=== PATIENT | male | born 1980 | race African-American/Black ===

== ENCOUNTER 2022-02-05 14:45 | Emergency (ER) | payer OTHER | END 2022-02-05 16:35 | disposition home or self-care (01) | LOC: CSHERS 14:45 | DX: R09.81 Nasal congestion (principal); R05.9 Cough, unspecified; Z20.822 Contact with and (suspected) exposure to COVID-19 | CPT/HCPCS: 99283; U0003; U0005 ==

== ENCOUNTER 2022-05-21 02:52 | Emergency (ER) | payer OTHER ==
[2022-05-21 03:32] LABS: #Basophils 0.1 10x3/uL (0.0-0.2); #Eosinphils 0.1 10x3/uL (0.0-0.5); #Monocytes 0.5 10x3/uL (0.0-1.1); #Neutrophils 3.6 10x3/uL (1.5-8.4); %Basophils 0.9 % (0.0-2.0); %Eosinophils 2.5 % (0.0-6.0); %Lymphocytes 23.2 % (18.0-47.0); %Monocytes 8.3 % (0.0-10.0); %Neutrophils 64.9 % (40.0-75.0); Hemoglobin 12.9 g/dL (13.5-17.5); Mean Corpuscular Hemoglobin 27.1 pg (27.0-33.0); Mean Corpuscular Volume 82.1 fl (81.2-95.1); Mean Platelet Volume 9.9 fl (7.4-10.4); Platelet Count 259 10x3/uL (150-450); RBC Distribution Width 13.2 % (11.5-14.5); Red Blood Cell (RBC) Count 4.76 10x6/uL (4.32-5.72); White Blood Cell (WBC) Count 5.5 10x3/uL (3.5-10.5)
[2022-05-21 04:06] LABS: ALT (SGPT) 12 U/L (8-55); AST (SGOT) 17 U/L (5-34); Albumin 3.7 g/dL (3.5-5.0); Alkaline Phosphatase 84 U/L (40-110); Anion Gap 12 mmol/L (10-20); BUN (Urea Nitrogen) 14 mg/dL (8.9-20.6); Bilirubin, Total 0.6 mg/dL (0.2-1.2); CK (CPK) 184 U/L (30-200); Calc. Creatinine Clearance 0 mL/min (70-130); Calcium 8.9 mg/dL (7.8-10.44); Carbon Dioxide 25 mmol/L (22-29); Chloride 106 mmol/L (98-107); Estimated GFR 74; Glucose 103 mg/dL (70-105); Lipase 22 U/L (8-78); Potassium 3.8 mmol/L (3.5-5.1); Protein, Total 6.7 g/dL (6.0-8.3); Sodium 139 mmol/L (136-145)
[2022-05-21 06:34] LABS: Troponin I Less than 0.010 ng/mL (< 0.028)
== END 2022-05-21 06:45 | disposition home or self-care (01) ==
LOC: CSHERS 02:52
DX: R07.9 Chest pain, unspecified (principal)
CPT/HCPCS: 36415; 71045; 80053; 82550; 83690; 84484; 85025; 93005

== ENCOUNTER 2022-12-24 06:02 | Emergency (ER) | payer OTHER | END 2022-12-24 06:32 | disposition home or self-care (01) | LOC: CSHERS 06:02 | DX: T78.40XD Allergy, unspecified, subsequent encounter (principal) | CPT/HCPCS: 99281 ==

== ENCOUNTER 2023-03-29 13:18 | Emergency (ER) | payer OTHER ==
[2023-03-29 14:22] LABS: Bilirubin Neg (Negative); Blood, Urine 150 (Negative); Clarity Clear (Clear); Glucose, Urine (Dipstick) Normal (Negative); Ketone, Urine 5 mg/dL (Negative); Leukocyte 25 (Negative); Nitrite Negative (Negative); Protein, Urine (Dipstick) 15 mg/dl (Neg-Trace); Specific Gravity, Urine 1.025 (1.005-1.030)
[2023-03-29 14:33] LABS: CAUTI Indications for Culture Pelvic or flank pain; Squamous Epithelial 0-3 HPF (0-3)
[2023-03-29 14:34] LABS: Bacteria/HPF Rare-Few HPF (None Seen); Mucous/LPF 1+ LPF (<2+); Urine Culture Reflex No No
== END 2023-03-29 14:59 | disposition home or self-care (01) ==
LOC: CSHERS 13:18
DX: N30.01 Acute cystitis with hematuria (principal)
CPT/HCPCS: 81001; 87086; 99283

== ENCOUNTER 2024-08-15 08:23 | Emergency (ER) | payer BC, OTHER | END 2024-08-15 09:10 | disposition home or self-care (01) | LOC: CSHERS 08:23 | DX: K12.2 Cellulitis and abscess of mouth (principal) | CPT/HCPCS: 99282 ==